=== PATIENT | male | born 1945 | race Caucasian/White ===

== ENCOUNTER 2017-01-22 16:55 | Emergency (ER) | payer MEDICARE ==
--- NOTE | 2017-01-22 17:23 | ERNOTE ---
Headache ER HPI - Narrative Date of Service: 01/22/17 - General Presenting Symptoms: headache Time Seen by Provider: 01/22/17 17:11 Source: patient, RN notes reviewed Exam Limitations: no limitations - Immun/Allergies/Home Medications Immunizations: IMMUNIZATION HX Immunizations Up to Date Yes History of Influenza Vaccine No Hx Pneumococcal Vaccination No Allergies/Adverse Reactions: Allergies No Known Allergies Allergy (Verified 01/22/17 17:07) Home Medications: HOME MEDICATIONS Lisinopril [Zestril] 10 mg PO DAILY 12/04/12 [Last Taken Unknown] Simvastatin [Zocor] 20 mg PO DAILY 12/04/12 [Last Taken Unknown] Warfarin Sodium [Coumadin] 4 mg PO Q48H 12/04/12 [Last Taken Unknown] Aspirin 81 mg PO DAILY 01/22/17 [Last Taken Unknown] Folic Acid 1 mg PO DAILY 01/22/17 [Last Taken Unknown] Methotrexate Sodium [Methotrexate] 15 mg PO Q7D 01/22/17 [Last Taken Unknown] Omeprazole 20 mg PO DAILY 01/22/17 [Last Taken Unknown] Warfarin Sodium [Coumadin] 5 mg PO Q48H 01/22/17 [Last Taken Unknown] - History of Present Illness Narrative: 71 y/o male ambulatory to the ED from his home for a headache and just not feeling right. He had went for a walk and done some yard work earlier today. He thought he would feel better if he ate, but the symptoms did not improve after eating. He watched TV for awhile and continued to feel bad, so he came here. His headache has resolved on arrival. He wants to just "get checked out" because he now lives alone. Timing of Headache: gradual, gone now Context Headache: Present: new onset Quality: Present: pressure Headache frequency: Present: no recent headache Prior Treament: Denies: recently seen, similar symptoms before Review of Systems - Review of Systems Constitutional: Present: fatigue, malaise. Absent: recent illness, fever, chills EYE: Present: no symptoms reported ENT: Absent: nose congestion, sore throat Respiratory: Absent: shortness of breath, cough Cardiology: Absent: chest pain, palpitations Gastrointestinal/Abdominal: Absent: nausea, vomiting, abdominal pain, eating less, drinking less Genitourinary: Present: no symptoms reported Musculoskeletal: Absent: muscle pain, neck pain Skin: Absent: rash, lesions Neurological: Present: headache, dizziness/light-headedness. Absent: weakness, numbness, tingling Endocrine: Present: no symptoms reported Hematologic/Lymphatic: Present: easy bruising, easy bleeding Psych: Present: no symptoms reported - Patient's Past Medical History Patient History - Medical: Other - psoriasis Patient History - Cardiac/Respiratory: Deep Vein Thrombosis, Hypertension, Hyperlipidemia Patient History - Cancer: No Hx of Cancer Patient History - Surgical Procedures: Appendectomy, Other - Social History Living Situations: alone Abuse History: No History of abuse Psych History: No pertinent hx Smoking Status: Former smoker Alcohol Use: occasionally Drug Use: none - Immunizations Immunizations Up to Date: Yes Hx Pneumococcal Vaccination: No History of Influenza Vaccine: No Physical Exam - Physical Exam General Appearance: Present: wd/wn, alert, no apparent distress Head Exam: Present: normal inspection, no evidence of injury Eye Exam: Normal inspection: bilateral, PERRL: bilateral Ears, Nose, Throat: Present: normal ENT inspection Neck: Present: normal inspection, nontender, supple Respiratory: Present: no respiratory distress, normal breath sounds, no accessory muscle use, lungs clear Cardiovascular/Chest: Present: regular rate, rhythm, no murmur Gastrointestinal/Abdominal: Present: nontender, nondistended, soft Extremity Exam: Present: normal inspection, normal range of motion, no edema Neurological Exam: Present: alert, oriented, normal mood/affect, no motor/ sensory deficits Skin Exam: Present: normal color, warm/dry ED Progress - Results and Orders Patient's Lab Results:: I have reviewed the patient's lab results. - Vital Signs Patient's Vital Signs:: I have reviewed the patient's vital signs. Vital Signs: Vital Signs 01/22/17 17:00 Temperature 36.7 C Pulse Rate 74 Respiratory 16 Rate Blood Pressure 174/77 O2 Sat by Pulse 96 Oximetry - EKG EKG: NSR, nonspecific ST T wave changes EKG read: Reviewed by me - Progress/Reassessment Chief Complaint: Headache Progress:: Pain free at discharge Departure Clinical Impression: Malaise Headache Qualifiers: Headache type: unspecified Headache chronicity pattern: acute headache Intractability: not intractable Qualified Code(s): R51 - Headache - Departure Disposition: Home self-care Condition: Good Instructions: Tension Headache, [id number] Additional Instructions: Continue your routine medications Return for worsening symptoms Referrals: Deyanira Camacho MD [Primary Care Provider] -
[2017-01-22 17:47] LABS: Hematocrit 39.3 % (42.0-52.0); Hemoglobin 13.1 gm/dL (13.5-18.0); Mean Cell Volume 82.7 fl (78-100); Mean Corpuscular Hemoglobin 27.6 pg (27-31); Mean Corpuscular Hgb Conc 33.3 g/dl (32-36); Neutrophil # 6.5 K/mm3 (1.3-6.0); Neutrophil % 61.8 % (42-75.0); Platelet Count 241 K/mm3 (150-450); Red Blood Count 4.75 M/mm3 (4.7-6.0); White Blood Count 10.5 K/mm3 (4.0-10.5)
[2017-01-22 17:57] LABS: Prothrombin Time (Patient) 25.5 Seconds (9.4-11.4)
[2017-01-22 17:59] LABS: INR 2.45 INR (0.90-1.10)
[2017-01-22 18:14] LABS: Albumin * 3.7 gm/dl (3.4-5.0); Anion Gap 15.8 mmol/L (6.8-13.8); BUN/Creatinine Ratio 20.5 (9.0-21.6); Bilirubin, Total 0.5 mg/dL (0.0-1.1); Ca. Corrected For Albumin 8.5 mg/dL (8.4-10.2); Calcium * 8.6 mg/dL (7.9-10.9); Carbon Dioxide 22.1 mmol/L (24-32.6); Potassium 3.9 mmol/L (3.4-4.6); TSH * 1.941 uIU/mL (0.358-3.74); Total Protein 6.9 gm/dL (6.2-8.2)
[2017-01-22 19:01] VITALS: BP 149/72
== END 2017-01-22 19:00 | disposition home or self-care (01) ==
LOC: ER 16:55
DX: R53.81 Other malaise (principal); R51 Headache; I10 Essential (primary) hypertension; E78.5 Hyperlipidemia, unspecified; Z86.718 Personal history of other venous thrombosis and embolism; Z79.01 Long term (current) use of anticoagulants